=== PATIENT | male | born 1975 | race Native Hawaiian/Other Pacific Islander ===

== ENCOUNTER 2016-10-06 16:06 | Emergency (ER) | payer OTHER ==
[~2016-10-06] VITALS: Ht 180.3 cm; Wt 92.5 kg
[2016-10-06] MEDS ORDERED: PRED20TA PO (17:53)
[2016-10-06] MEDS ORDERED: AUGM875T27 PO (17:53)
[2016-10-06] MEDS ORDERED: IBUP80TA PO (17:53)
[2016-10-06] MEDS: ACETAMINOPHEN 325 MG TAB PO ONE (18:00)
[2016-10-06] MEDS: AUGMENTIN 875 MG TAB PO ONE (18:00)
[2016-10-06 18:09] VITALS: BP 152/95
== END 2016-10-06 18:11 | disposition home or self-care (01) ==
LOC: M ED 17:47
DX: J02.0 Streptococcal pharyngitis (principal); J03.00 Acute streptococcal tonsillitis, unspecified